=== PATIENT | female | born 1995 | race Caucasian/White ===

== ENCOUNTER → 2016-02-25 | Outpatient (REF) | payer BC | LOC: M SFHCPLAZ 13:51 | PROVIDERS: ATTEND Family Medicine | DX: Z12.4 Encounter for screening for malignant neoplasm of cervix (principal) ==

== ENCOUNTER → 2016-03-02 | Outpatient (REF) | payer BC | LOC: M SFHCWAGY 11:56 | PROVIDERS: ATTEND Nurse Practitioner Women's Health | DX: R87.613 High grade squamous intraepithelial lesion on cytologic smear of cervix (HGSIL) (principal) ==